=== PATIENT | male | born 1935 | race Caucasian/White ===

== ENCOUNTER 2017-02-16 20:47 | Observation (INO) | payer OTHER, MEDICARE ==
--- NOTE | 2017-02-16 21:24 | PDOC ---
Attending Attestation - HPI HPI: 02/16/17 22:40 Patient is a 81 year old male with a significant past medical history of Early Parkinson's who presents to the ED with complaints of palpitations that began this morning. Patient reports playing tennis this morning when he suddenly began to experience chest palpitations. He reports attempting to rest after initial onset in order to relieve palpitations, but ended up called EMS when they showed no signs of subsiding. As per EMS patient was in SVT while enroute to the ED. Patient currently has no complaints while in ED. Denies fever, chills. Denies nausea, vomiting. Denies out of state travel. Denies any other symptoms. Allergies: Penicillin, Sulfa Social history: No smoking. No alcohol. No illicit drugs. Surgical history: None FamHx - Father of [place]. PMD: None <Alexis Rose - Last Filed: 02/16/17 22:39> - Resident Resident Name: Jose Beachica - ED Attending Attestation I have performed the following: I have examined & evaluated the patient, The case was reviewed & discussed with the resident, I agree w/resident's findings & plan, Exceptions are as noted - Physicial Exam PE: 02/16/17 23:50 *Physical Exam General Appearance: Yes: Appropriately Dressed. No: Apparent Distress, Intoxicated HEENT: positive: EOMI, SUMEET, Normal ENT Inspection, Normal Voice, TMs Normal, Pharynx Normal. negative: Pale Conjunctivae, Photophobia, Scleral Icterus (R), Scleral Icterus (L) Neck: positive: Trachea midline, Normal Thyroid, Supple. negative: Tender, Rigid, Carotid bruit, Stridor, Lymphadenopathy (R), Lymphadenopathy (L), Thyromegaly Respiratory/Chest: positive: Lungs Clear, Normal Breath Sounds. negative: Chest Tender, Respiratory Distress, Accessory Muscle Use, Labored Respiration, RES, Crackles, Rales, Rhonchi, Stridor, Wheezing, Dullness Cardiovascular: positive: Regular Rhythm, Regular Rate, S1, S2. negative: Edema , JVD, Murmur, Bradycardia, Tachycardia Vascular Pulses: Dorsalis-Pedis (R): 2+, Doralis-Pedis (L): 2+ Gastrointestinal/Abdominal: positive: Normal Bowel Sounds, Flat, Soft. negative : Tender, Organomegaly, Pulsatile Mass, Increased Bowel Sounds, Decreased BS, Distended, Guarding, Rebound, Hernia, Hepatomegaly, Spleenomegaly Lymphatic: negative: Adenopathy, Tenderness Musculoskeletal: positive: Normal Inspection. negative: CVA Tenderness, Decreased Range of Motion Extremity: positive: Normal Capillary Refill, Normal Inspection, Normal Range of Motion, Pelvis Stable. negative: Tender, Pedal Edema, Swelling, Erythema Integumentary: positive: Normal Color, Dry, Warm. 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 negative: EOM Palsy, Facial Droop, Sensory Deficit - Medical Decision Making 02/16/17 23:50 Pt admitted to Tele Obs. <Corbin Hamilton - Last Filed: 02/16/17 23:51>
--- NOTE | 2017-02-16 21:27 | PDOC ---
History of Present Illness - General Chief Complaint: Irregular Heart Beat Stated Complaint: DIFFICULTY BREATHING Time Seen by Provider: 02/16/17 21:11 History Source: Patient - History of Present Illness Initial Comments: 02/16/17 21:22 Patient is a 81 y.o. male with a PMH of early Parkinson's Disease who presents to the ED tonight after palpitation while playing tennis. Patient states he attempted to rest however when the palpitations didn't resolve he called EMS. Patient denies any previous similar episodes and denies any chest pain/ shortness of breath on exertion @ baseline. Family history significant for paternal from [place]. Patient performed Valsava en route to the hospital and SVT resolved. Allergy: penicillins, sulfa Surgical: Rotator Cuff repair, ventral hernia repair, spinal stenosis repair Social: denies nicotine, 2-3 ounces of alcohol weekly, denies recreational drugs PMD: Past History - Past Medical History Allergies/Adverse Reactions: Allergies Allergy/AdvReac Type Severity Reaction Status Date / Time Penicillins Allergy Verified 02/16/17 21:05 Sulfa (Sulfonamide Allergy Verified 02/16/17 21:05 Antibiotics) Home Medications: Ambulatory Orders Aspirin [ASA -] 81 mg PO DAILY 02/16/17 Atorvastatin Ca [Lipitor] 20 mg NR HS 02/16/17 Carbidopa/Levodopa *Cr* 25/100 [Sinemet *Cr* 25/100 -] 1 tab PO QID 02/16/17 Escitalopram Oxalate [Lexapro -] 20 mg PO DAILY 02/16/17 Pyridoxine HCl [Vitamin B-6] 25 mg PO DAILY 02/16/17 - Suicide/Smoking/Psychosocial Hx Smoking History: Never smoked Have you smoked in the past 12 months: No Information on smoking cessation initiated: No Hx Alcohol Use: No Drug/Substance Use Hx: No Review of Systems - Review of Systems Constitutional: No: Chills, Fever Respiratory: No: Cough Cardiac (ROS): No: Chest Pain, Palpitations All Other Systems: Reviewed and Negative *Physical Exam - Vital Signs Last Vital Signs Temp Pulse Resp BP Pulse Ox 98.9 F 70 20 128/90 96 02/16/17 21:01 02/16/17 21:01 02/16/17 21:01 02/16/17 21:01 02/16/17 21:01 - Physical Exam General Appearance: Yes: Nourished, Appropriately Dressed Neck: positive: Trachea midline, Supple Respiratory/Chest: positive: Lungs Clear Cardiovascular: positive: S1, S2. 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 male who presents with resolved SVT s/p Valsalva. EKG shows SR, HR 68, with no deviations, prolonged LA interval, no ST segment elevations/depressions --> 1st degree AV block. Troponin (-) x1. CBC, CMP show no concerning abnormalities. Patient to be admitted to telemetry for further cardiac evaluation. *DC/Admit/Observation/Transfer Diagnosis at time of Disposition: Supraventricular tachycardia - Discharge Dispostion Condition at time of disposition: Good Admit: Yes - Referrals - Patient Instructions - Post Discharge Activity
[2017-02-16 22:19] LABS: BASO % 0.7 % (0-2.0); EOS % 4.2 % (0-4.5); HEMATOCRIT 39.3 % (35.4-49); HEMOGLOBIN 13.3 GM/dL (11.7-16.9); LYMPH % 23.5 % (8-40); MCH 31.2 pg (25.7-33.7); MCHC 33.9 g/dl (32.0-35.9); MEAN CELL VOLUME 92.1 fl (80-96); MEAN PLT VOLUME 9.1 fl (7.5-11.1); MONO % 8.9 % (3.8-10.2); NEUT % 62.7 % (42.8-82.8); PLATELET COUNT 194 K/MM3 (134-434); RBC 4.27 M/mm3 (4.00-5.60); RDW 13.6 % (11.9-15.9); WHITE BLOOD COUNT 6.6 K/mm3 (4.0-10.0)
[2017-02-16 22:45] LABS: ALBUMIN 3.6 g/dl (3.4-5.0); ANION GAP 5 (8-16); BLOOD UREA NITROGEN 21 mg/dL (7-18); CALCIUM 8.5 mg/dL (8.5-10.1); CHLORIDE 109 mmol/L (98-107); CO2 28 mmol/L (21-32); CREATININE 1.1 mg/dL (0.7-1.3); GLUCOSE,RANDOM 80 mg/dL (74-106); MAGNESIUM 2.4 mg/dL (1.8-2.4); POTASSIUM 4.1 mmol/L (3.5-5.1); SGOT/AST 22 U/L (15-37); SGPT/ALT 11 U/L (12-78); SODIUM 142 mmol/L (136-145)
[2017-02-16 22:49] LABS: ALK PHOS 88 U/L (45-117); BILIRUBIN,TOTAL 0.4 mg/dL (0.2-1.0); N-TERMINAL BNP 237.32 pg/ml (5-450); TOT PROT 6.9 g/dl (6.4-8.2)
--- NOTE | 2017-02-16 23:47 | HP ---
<Huber Paul - Last Filed: 02/17/17 00:34> CHIEF COMPLAINT: palpitations with registered SVT by EMS HISTORY OF PRESENT ILLNESS: 81 year old male with episode of SVT while playing tennis , resolved after valsalva performed by EMS PAST MEDICAL HISTORY: Diya Social History: Smoking: Alcohol: Drugs: Family History: Allergies Penicillins Allergy (Verified 02/16/17 21:05) Sulfa (Sulfonamide Antibiotics) Allergy (Verified 02/16/17 21:05) HOME MEDICATIONS: Home Medications Medication Instructions Recorded Aspirin [ASA -] 81 mg PO DAILY 02/16/17 Atorvastatin Ca [Lipitor] 20 mg NR HS 02/16/17 Carbidopa/Levodopa *Cr* 25/100 1 tab PO QID 02/16/17 [Sinemet *Cr* 25/100 -] Escitalopram Oxalate [Lexapro -] 20 mg PO DAILY 02/16/17 Pyridoxine HCl [Vitamin B-6] 25 mg PO DAILY 02/16/17 PHYSICAL EXAMINATION Vital Signs - 24 hr 02/16/17 02/16/17 21:01 23:47 Temperature 98.9 F Pulse Rate 70 Pulse Rate [ 61 Apical] Respiratory 20 17 Rate Blood Pressure 128/90 Blood Pressure 151/88 [Left Arm] O2 Sat by Pulse 96 98 Oximetry (%) LUNGS: CTA bilaterally. No wheezes, rhonchi, rales. No accessory muscle use. HEART: RRR, normal S1 and S2 without murmur. ABDOMEN: Soft, nontender, nondistended, normoactive bowel sounds, no guarding, no rebound, no masses. No hepatomegaly. MUSCULOSKELETAL: Normal range of motion at all joints. No bony deformities or tenderness. No CVA tenderness. EXTREMITIES: 2+ DP pulses, no edema Laboratory Results - last 24 hr 02/16/17 02/16/17 02/16/17 22:10 22:10 22:10 WBC 6.6 RBC 4.27 Hgb 13.3 Hct 39.3 MCV 92.1 MCH 31.2 MCHC 33.9 RDW 13.6 Plt Count 194 MPV 9.1 Neutrophils % 62.7 Lymphocytes % 23.5 Monocytes % 8.9 Eosinophils % 4.2 Basophils % 0.7 Sodium 142 Potassium 4.1 Chloride 109 H Carbon Dioxide 28 Anion Gap 5 L BUN 21 H Creatinine 1.1 Creat Clearance w eGFR > 60 Random Glucose 80 Calcium 8.5 Magnesium 2.4 Total Bilirubin 0.4 AST 22 ALT 11 L Alkaline Phosphatase 88 Creatine Kinase 83 Troponin I < 0.02 B-Natriuretic Peptide 237.32 Total Protein 6.9 Albumin 3.6 ASSESSMENT/PLAN: SVT likely triggered by vasovagal episode/ hypotension after physical activity monitor overnight on telemetry IVF ECHO if no acute events on telemetry may d/c in am to follow with pcp/ cardiology <Dickson Thornton - Last Filed: 02/17/17 00:56> CHIEF COMPLAINT: Palpitations PCP: None HISTORY OF PRESENT ILLNESS: 81yo M with only history of early Parkinson's and HLD who presents to the ED for palpitations after his tennis game today. Pt states he developed this episode of palpitations about 10 minutes after his tennis match, however it did not go away for another 30 minutes. Pt states he called the ambulance because he was concerned and he was instructed to perform a Valsalva maneuver which terminated the palpitations. Pt states he had palpitations once before over 10 years ago, however it lasted for about 2 minutes and terminated by itself. Pt states he is a coffee drinker, however had his usual 1-2 cups today. Pt also states he drinks alcohol (about 2-3 ounces /wk), however his last drink was Monday. Pt denied any lightheadedness, dizziness, SOB, CP/ discomfort, dysphagia, difficulty swallowing, fever/chills, abdominal pain, decreased exercise tolerance, diarrhea/constipation, and unusual weight fluctuations. ER course was notable for: (1) EKG - NSR @68bpm with 1st degree AV block; no ST abnormalities noted. ( Unknown to pt if he's had the 1st degree AV block or not) Recent Travel: Denies PAST MEDICAL HISTORY: HLD Parkinson's on Sinemet PAST SURGICAL HISTORY: Ventral hernia repair Rotator cuff repair Spinal stenosis decompression Social History: Smoking: Denies Alcohol: 2-3 ounces /wk Drugs: None Caffeine: 1-2 cups per day Family History: Mother - Pt "thinks she had" hyperthyroidism Father - at 39yo due to [place] Allergies Penicillins Allergy (Verified 02/16/17 21:05) Sulfa (Sulfonamide Antibiotics) Allergy (Verified 02/16/17 21:05) HOME MEDICATIONS: Home Medications Medication Instructions Recorded Aspirin [ASA -] 81 mg PO DAILY 02/16/17 Atorvastatin Ca [Lipitor] 20 mg NR HS 02/16/17 Carbidopa/Levodopa *Cr* 1 tab PO QID 02/16/17 [Sinemet *Cr* -] Escitalopram Oxalate [Lexapro -] 20 mg PO DAILY 02/16/17 Pyridoxine HCl [Vitamin B-6] 25 mg PO DAILY 02/16/17 REVIEW OF SYSTEMS CONSTITUTIONAL: Absent: fever, chills, diaphoresis, generalized weakness, malaise, loss of appetite, weight change HEENT: Absent: rhinorrhea, nasal congestion, throat pain, throat swelling, difficulty swallowing, mouth swelling, ear pain, eye pain, visual changes CARDIOVASCULAR: Present: Palpitations Absent: chest pain, syncope, lightheadedness, peripheral edema RESPIRATORY: Absent: cough, shortness of breath, dyspnea with exertion, orthopnea, wheezing, stridor, hemoptysis GASTROINTESTINAL: Absent: abdominal pain, abdominal distension, nausea, vomiting, diarrhea, constipation, melena, hematochezia GENITOURINARY: Absent: dysuria, frequency, urgency, hesitancy, hematuria, flank pain, genital pain MUSCULOSKELETAL: Absent: myalgia, arthralgia, joint swelling, back pain, neck pain SKIN: Absent: rash, itching, pallor HEMATOLOGIC/IMMUNOLOGIC: Absent: easy bleeding, easy bruising, lymphadenopathy, frequent infections ENDOCRINE: Absent: unexplained weight gain, unexplained weight loss, heat intolerance, cold intolerance NEUROLOGIC: Absent: headache, focal weakness or paresthesias, dizziness, unsteady gait, seizure, mental status changes, bladder or bowel incontinence PSYCHIATRIC: Absent: anxiety, depression, suicidal or homicidal ideation, hallucinations. PHYSICAL EXAMINATION Vital Signs - 24 hr 02/16/17 21:01 Temperature 98.9 F Pulse Rate 70 Respiratory 20 Rate Blood Pressure 128/90 O2 Sat by Pulse 96 Oximetry (%) GENERAL: NAD, laying comfortably in bed, awake, alert HEENT: No JVD, no thyromegaly appreciated, no nodules appreciated with swallowing, no lymphadenopathy, EOMI, SAVANAH, moist mucosa with normal structures LUNGS: CTA bilaterally. No wheezes, rhonchi, rales. No accessory muscle use. HEART: RRR, normal S1 and S2 without murmur. ABDOMEN: Soft, nontender, nondistended, normoactive bowel sounds, no guarding, no rebound, no masses. No hepatomegaly. MUSCULOSKELETAL: Normal range of motion at all joints. No bony deformities or tenderness. No CVA tenderness. EXTREMITIES: 2+ DP pulses, no edema NEUROLOGICAL: Cranial nerves II-XII intact. Normal speech. Nonfocal exam. Gait not observed PSYCHIATRIC: Cooperative. Good eye contact. Appropriate mood and affect. SKIN: Warm, no rashes or lesions noted, cap refill <2sec Laboratory Results - last 24 hr 02/16/17 02/16/17 02/16/17 22:10 22:10 22:10 WBC 6.6 RBC 4.27 Hgb 13.3 Hct 39.3 MCV 92.1 MCH 31.2 MCHC 33.9 RDW 13.6 Plt Count 194 MPV 9.1 Neutrophils % 62.7 Lymphocytes % 23.5 Monocytes % 8.9 Eosinophils % 4.2 Basophils % 0.7 Sodium 142 Potassium 4.1 Chloride 109 H Carbon Dioxide 28 Anion Gap 5 L BUN 21 H Creatinine 1.1 Creat Clearance w eGFR > 60 Random Glucose 80 Calcium 8.5 Magnesium 2.4 Total Bilirubin 0.4 AST 22 ALT 11 L Alkaline Phosphatase 88 Creatine Kinase 83 Troponin I < 0.02 B-Natriuretic Peptide 237.32 Total Protein 6.9 Albumin 3.6 ASSESSMENT/PLAN: 81yo M with HLD and early Parkinson's who presents with palpitations for 30 minutes after his tennis game without any associated symptoms. Pt had palpitations terminated with Valsva en route to hospital. 1) SVT --Unknown etiology; ? suspected PAF --Hemodynamically stable --EKG in ER shows 1st degree AV block and NSR (unknown if old 1st degree AV block) --Echo ordered in morning --TSH to be drawn with AM labs 2) Parkinson's --Continue Sinemet QID 3) HLD --Continue Lipitor 20mg HS PO FEN: Fluids: Not indicated currently Electrolyte abnormalities: None currently Nutrition: Cholesterol controlled diet PPX: DVT - SCDs and early ambulation Dispo: Tele obs Case discussed with Dr. Humberto Thornton, DO - Internal Medicine PGY-1 Visit type - Emergency Visit Emergency Visit: Yes ED Registration Date: 02/16/17 Care time: The patient presented to the Emergency Department on the above date and was hospitalized for further evaluation of their emergent condition. - New Patient This patient is new to me today: Yes Date on this admission: 02/17/17 - Critical Care Critical Care patient: No
[2017-02-17 01:23] VITALS: BMI 23.1
[2017-02-17 07:32] LABS: ANION GAP 6 (8-16); BLOOD UREA NITROGEN 18 mg/dL (7-18); CALCIUM 8.3 mg/dL (8.5-10.1); CHLORIDE 109 mmol/L (98-107); CO2 28 mmol/L (21-32); GLUCOSE,RANDOM 77 mg/dL (74-106); SODIUM 143 mmol/L (136-145)
[2017-02-17] MEDS ORDERED: FLU VACCINE QUAD 60 MCG/0.5 ML (MDV 17-18) IM ONE (09:00)
[2017-02-17] MEDS ORDERED: ESCITALOPRAM OXALATE 20 MG TABLET (FP) PO SCH (10:00)
[2017-02-17] MEDS ORDERED: ASPIRIN 81 MG CHEWABLE TABLETS PO SCH (10:00)
--- NOTE | 2017-02-17 10:23 | EKG ---
Test Reason : Blood Pressure : / mmHG Vent. Rate : 068 BPM Atrial Rate : 068 BPM P-R Int : 214 ms QRS Dur : 090 ms QT Int : 418 ms P-R-T Axes : 022 -44 053 degrees QTc Int : 444 ms POOR DATA QUALITY, INTERPRETATION MAY BE ADVERSELY AFFECTED SINUS RHYTHM WITH 1ST DEGREE A-V BLOCK LEFT AXIS DEVIATION VOLTAGE CRITERIA FOR LEFT VENTRICULAR HYPERTROPHY ABNORMAL ECG NO PREVIOUS ECGS AVAILABLE Confirmed by MD AALIYAH, MARLON ([id number]) on 02/17/2017 10:22:44 AM Referred By: Confirmed By:MARLON FISCHER MD
--- NOTE | 2017-02-17 13:02 | PN ---
Physical Exam: SUBJECTIVE: Patient seen and examined sitting on edge of bed eating lunch quite comfortably. present. Denies any symptoms at this time, feels well. PCP: Dr. Matos @ [facility] on [address] Welfare Supervisor: Dr. Mccormick, [facility] - last seen >10 years ago OBJECTIVE: Vital Signs Period Temp Pulse Resp BP Sys/Ballard Pulse Ox Last 24 Hr 97.9 F-98.9 F 56-70 17-20 128-158/66-90 96-98 GENERAL: The patient is awake, alert, and fully oriented, in no acute distress. LUNGS: Breath CTA HEART: RRR, S1, S2 ABDOMEN: Soft, nontender, nondistended, normoactive bowel sounds EXTREMITIES: 2+ pulses, warm, well-perfused, no edema. NEUROLOGICAL: Cranial nerves II through XII grossly intact. Normal speech Laboratory Results - last 24 hr 02/16/17 02/16/17 02/16/17 22:10 22:10 22:10 WBC 6.6 RBC 4.27 Hgb 13.3 Hct 39.3 MCV 92.1 MCH 31.2 MCHC 33.9 RDW 13.6 Plt Count 194 MPV 9.1 Neutrophils % 62.7 Lymphocytes % 23.5 Monocytes % 8.9 Eosinophils % 4.2 Basophils % 0.7 Sodium 142 Potassium 4.1 Chloride 109 H Carbon Dioxide 28 Anion Gap 5 L BUN 21 H Creatinine 1.1 Creat Clearance w eGFR > 60 Random Glucose 80 Calcium 8.5 Magnesium 2.4 Total Bilirubin 0.4 AST 22 ALT 11 L Alkaline Phosphatase 88 Creatine Kinase 83 Troponin I < 0.02 B-Natriuretic Peptide 237.32 Total Protein 6.9 Albumin 3.6 TSH 02/17/17 02/17/17 05:05 06:00 WBC RBC Hgb Hct MCV MCH MCHC RDW Plt Count MPV Neutrophils % Lymphocytes % Monocytes % Eosinophils % Basophils % Sodium 143 Potassium 4.0 Chloride 109 H Carbon Dioxide 28 Anion Gap 6 L BUN 18 Creatinine 1.0 Creat Clearance w eGFR Random Glucose 77 Calcium 8.3 L Magnesium Total Bilirubin AST ALT Alkaline Phosphatase Creatine Kinase Troponin I 0.04 D Cancelled B-Natriuretic Peptide Total Protein Albumin TSH 5.82 H Active Medications Generic Name Dose Route Start Last Admin Trade Name Freq PRN Reason Stop Dose Admin Aspirin 81 mg 02/17/17 10:00 02/17/17 09:48 Asa - PO 81 mg DAILY OSBALDO Administration Atorvastatin Calcium 20 mg 02/17/17 22:00 Lipitor - PO HS OSBALDO Carbidopa/Levodopa 1.5 combo 02/17/17 14:00 Sinemet *Cr* 25/100 - PO TID OSBALDO Escitalopram Oxalate 20 mg 02/17/17 10:00 02/17/17 09:48 Lexapro - PO 20 mg DAILY OSBALDO Administration ASSESSMENT/PLAN 81 year-old male with a PMH of HLD and Parkinson's disease. Chest pain --following 40 minutes of tennis, experienced dizziness, SOB, palpitations and mid-sternal chest tightness; according to ambulance report (in paper chart) initial 12-lead showed SVT at 156 bpm; patient instructed on vagal maneuver which successfully dropped HR to 60's; serial BP readings 130/60, 152/90/ 146/ 93 --serial ECGs without evidence of acute ischemic event; sinus colin @ 58, first degree heart block --telemetry: no arrhythmias, colin 50s --last cardiac workup >10 years ago --troponins neg x 2, third pending --echo pending --EST pending (patient avid athlete: tennis, spin classes, boxing, yoga, walking) --cardiology consult pending Parkinson's disease --diagnosed 2 years ago --on carbidopa/levodopa; side effect profile includes cardiac arrhythmias, chest pain, palpitations, and [place] (undefined frequency). --will appreciate cardiology input Elevated TSH --TSH 5.82 --no h/o of thyroid disorder --free T3, free T4 added on the am labs --will need outpatient followup FEN Fluids: PO intake adequate Electrolytes: replete as indicated, keep K>4, Mg >2 Nutrition: low sodium DVT prophylaxis: start lovenox in am if still here. Full code. Visit type - Emergency Visit Emergency Visit: Yes ED Registration Date: 02/16/17 Care time: The patient presented to the Emergency Department on the above date and was hospitalized for further evaluation of their emergent condition. - New Patient This patient is new to me today: Yes Date on this admission: 02/17/17 - Critical Care Critical Care patient: No
--- NOTE | 2017-02-17 14:41 | CON.CARD ---
Cardiology Consult (text) - Consultation Consultation Note: 81 y.o. male with a PMH of HL, depression, early Parkinson's Disease p/w palps. Occurred while playing tennis. Did not resolve with rest + assoc, lightheadedness, sob, cp Per ambulance record. Patient noted to have HR of 156. EKG c/w svt per report. patient performed vagal maneuvers with resolution of arrhythmia. Subsequent HR 60's --> sx's resolved. No recurrence since then. Patient denies any previous similar episodes or prior hx of palps, dizziness. No recent change in clinical status or decrease in exercise capacity. Patient plays tennis regularly without limitation. no orthopnea, pnd, le edema, bleeding, transient neurologic symptoms. pmhx/pshx: per hpi, Rotator Cuff repair, ventral hernia repair, spinal stenosis repair Social: Never smoked, 2-3 ounces of alcohol weekly, denies recreational drugs fam hx: paternal from [place]. ros: per hpi, no f/c/s, n/v/d, h/a, cough, congestion, rashes, visual disturbances. Ambulatory Orders Aspirin [ASA -] 81 mg PO DAILY 02/16/17 Atorvastatin Ca [Lipitor] 20 mg NR HS 02/16/17 Carbidopa/Levodopa *Cr* 25/100 [Sinemet *Cr* 25/100 -] 1 tab PO QID 02/16/17 Escitalopram Oxalate [Lexapro -] 20 mg PO DAILY 02/16/17 Pyridoxine HCl [Vitamin B-6] 25 mg PO DAILY 02/16/17 Current Medications Aspirin (Asa -) 81 mg PO DAILY [facility] Last Admin: 02/17/17 09:48 Dose: 81 mg Atorvastatin Calcium (Lipitor -) 20 mg PO HS [facility] Carbidopa/Levodopa (Sinemet *Cr* 25/100 -) 1.5 combo PO TID [facility] Last Admin: 02/17/17 14:31 Dose: 1.5 combo Enoxaparin Sodium (Lovenox -) 40 mg SQ DAILY [facility] Escitalopram Oxalate (Lexapro -) 20 mg PO DAILY [facility] Last Admin: 02/17/17 09:48 Dose: 20 mg Vital Signs - 24 hr 02/16/17 02/16/17 02/16/17 21:01 23:47 23:50 Temperature 98.9 F 97.9 F Pulse Rate 70 61 Pulse Rate [ 61 Apical] Respiratory 20 17 20 Rate Blood Pressure 128/90 158/78 Blood Pressure 151/88 [Left Arm] O2 Sat by Pulse 96 98 96 Oximetry (%) 02/17/17 02/17/17 03:48 09:00 Temperature 98 F Pulse Rate 56 L 54 L Pulse Rate [ Apical] Respiratory 20 18 Rate Blood Pressure 149/66 132/72 Blood Pressure [Left Arm] O2 Sat by Pulse Oximetry (%) Intake & Output 02/15/17 02/16/17 02/17/17 02/18/17 07:59 07:59 07:59 07:59 Weight 170 lb 3.2 oz nad, calm jvd flat, neck supple ctab, nl effort RRR nl s1, s2 no mrg + bs soft nt nd ext without e/c/c + dp/pt no carotid bruits no jaundice, diaphoresis. aaox3 CBC, BMP 02/16/17 22:10 02/17/17 05:05 Laboratory Tests 02/16/17 02/16/17 02/17/17 22:10 22:10 05:05 Magnesium 2.4 Total Bilirubin 0.4 AST 22 ALT 11 L Alkaline Phosphatase 88 Creatine Kinase 83 Troponin I < 0.02 0.04 D B-Natriuretic Peptide 237.32 Albumin 3.6 TSH 5.82 H 02/17/17 14:20 Magnesium Total Bilirubin AST ALT Alkaline Phosphatase Creatine Kinase Troponin I < 0.02 D B-Natriuretic Peptide Albumin TSH EKG 02/16: sr 68 bpm with av delay. lad. lvh. no acute ischemic changes EKG 02/17: sb 58 bpm with av delay. otherwise unchanged tele: sr/sb, trevor in the high 40's. 2 episodes of 4 beat and 8 beat atrial run. echo nl lv/rv. 1+ mr/tr. nl rvsp. 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
--- NOTE | 2017-02-17 16:27 | TRE ---
Protocol Name : SERGE Max Work Load (METS*10) : 70 Time In Exercise Phase : 00:05:22 Max. Systolic BP : 183 mmHg Max Diastolic BP : 100 mmHg Max Heart Rate : 139 BPM Max Predicted Heart Rate : 141 BPM Attending Physician : JUJU FISCHER Reason For Termination : Target Heart Rate Achieved Reason for Test : CHEST PAIN Stress Protocol : SERGE Rest HR : 76 BPM PeakEx METs : 7.0 METS Recovery ECG Response (OLD) : Diagnosis : Exercise treadmil stress test The patient performed 5:22min of standard serge protocol. Target heart rate was achieved. Test was terminated due to fatigue. No chest pain or shortness of breath throughout the exam. Rest ECG showed NSR 60bpm with no significant ST abnormalities. Stress ECG showed no significant ST changes from baseline. There were occasional PVCs but no significant arrythmias throughout the exam. Impression: Normal Exercise treadmill stress test. No evidence of stress induced ischemia. Confirmed by MD FISCHER GREGORY ([id number]) on 02/17/2017 4:26:48 PM
--- NOTE | 2017-02-17 16:32 | EKG ---
Test Reason : Blood Pressure : / mmHG Vent. Rate : 058 BPM Atrial Rate : 058 BPM P-R Int : 216 ms QRS Dur : 096 ms QT Int : 438 ms P-R-T Axes : 020 -41 070 degrees QTc Int : 429 ms SINUS BRADYCARDIA WITH 1ST DEGREE A-V BLOCK LEFT AXIS DEVIATION VOLTAGE CRITERIA FOR LEFT VENTRICULAR HYPERTROPHY ABNORMAL ECG WHEN COMPARED WITH ECG OF 16-FEB-2017 21:05, NO SIGNIFICANT CHANGE WAS FOUND Confirmed by MD AALIYAH, MARLON ([id number]) on 02/17/2017 4:32:16 PM Referred By: Confirmed By:MARLON FISCHER MD
--- NOTE | 2017-02-17 17:24 | DS ---
Physical Exam: SUBJECTIVE: Patient seen and examined OBJECTIVE: Vital Signs Period Temp Pulse Resp BP Sys/Ballard Pulse Ox Last 24 Hr 97.9 F-98.9 F 54-74 17-20 123-158/66-90 96-100 PHYSICAL EXAM GENERAL: The patient is awake, alert, and fully oriented, in no acute distress. HEAD: Normal with no signs of trauma. EYES: PERRL, extraocular movements intact, sclera anicteric, conjunctiva clear. ENT: Ears normal, nares patent, oropharynx clear without exudates, moist mucous membranes. NECK: Trachea midline, full range of motion, supple. LUNGS: Breath sounds equal, clear to auscultation bilaterally, no wheezes, no crackles, no accessory muscle use. HEART: Regular rate and rhythm, S1, S2 without murmur, rub or gallop. ABDOMEN: Soft, nontender, nondistended, normoactive bowel sounds, no guarding, no rebound, no hepatosplenomegaly, no masses. EXTREMITIES: 2+ pulses, warm, well-perfused, no edema. NEUROLOGICAL: Cranial nerves II through XII grossly intact. Normal speech, gait not observed. PSYCH: Normal mood, normal affect. SKIN: Warm, dry, normal turgor, no rashes or lesions noted. LABS Laboratory Results - last 24 hr 02/16/17 02/16/17 02/16/17 22:10 22:10 22:10 WBC 6.6 RBC 4.27 Hgb 13.3 Hct 39.3 MCV 92.1 MCH 31.2 MCHC 33.9 RDW 13.6 Plt Count 194 MPV 9.1 Neutrophils % 62.7 Lymphocytes % 23.5 Monocytes % 8.9 Eosinophils % 4.2 Basophils % 0.7 Sodium 142 Potassium 4.1 Chloride 109 H Carbon Dioxide 28 Anion Gap 5 L BUN 21 H Creatinine 1.1 Creat Clearance w eGFR > 60 Random Glucose 80 Calcium 8.5 Magnesium 2.4 Total Bilirubin 0.4 AST 22 ALT 11 L Alkaline Phosphatase 88 Creatine Kinase 83 Troponin I < 0.02 B-Natriuretic Peptide 237.32 Total Protein 6.9 Albumin 3.6 TSH 02/17/17 02/17/17 02/17/17 05:05 06:00 14:20 WBC RBC Hgb Hct MCV MCH MCHC RDW Plt Count MPV Neutrophils % Lymphocytes % Monocytes % Eosinophils % Basophils % Sodium 143 Potassium 4.0 Chloride 109 H Carbon Dioxide 28 Anion Gap 6 L BUN 18 Creatinine 1.0 Creat Clearance w eGFR Random Glucose 77 Calcium 8.3 L Magnesium Total Bilirubin AST ALT Alkaline Phosphatase Creatine Kinase Troponin I 0.04 D Cancelled < 0.02 D B-Natriuretic Peptide Total Protein Albumin TSH 5.82 H HOSPITAL COURSE: Date of Admission:02/16/17 Date of Discharge: 02/17/17 Discharge Summary Reason For Visit: SVT Current Active Problems Supraventricular tachycardia (Acute) Condition: Improved - Instructions Diet, Activity, Other Instructions: Please follow up with your primary care provider Dr. Matos within one week of your discharge. Return to the emergency department for any new or worsening symptoms. Referrals: Mukesh Matos Dr. [Other] - 1 Week Disposition: HOME - Home Medications Comprehensive Discharge Medication List: Ambulatory Orders Aspirin [ASA -] 81 mg PO DAILY 02/16/17 Atorvastatin Ca [Lipitor] 20 mg NR HS 02/16/17 Escitalopram Oxalate [Lexapro -] 20 mg PO DAILY 02/16/17 Pyridoxine HCl [Vitamin B-6] 25 mg PO DAILY 02/16/17 Carbidopa/Levodopa *Cr* 25/100 [Sinemet *Cr* 25/100 -] 1.5 combo PO TID tablet.er 02/17/17
[2017-02-17 18:11] VITALS: BP 144/86; PULSE 61; TEMP 97.7
[2017-02-17] MEDS ORDERED: ATORVASTATIN CA 20 MG TABLET (FP) PO SCH (22:00)
[2017-02-18] MEDS ORDERED: ENOXAPARIN NA (PORCINE) 40 MG/0.4 ML DISP.SYRIN SQ SCH (10:00)
== END 2017-02-17 19:01 | disposition home or self-care (01) ==
LOC: JER 20:47 → JERBED 23:29 → UNDOADMOB 23:50 → J4W 02-17 00:49 → JERBED 02-17 00:49
PROVIDERS: ADMIT Internal Medicine; ATTEND Nurse Practitioner Acute Care
PROC: 3E0234Z Introduction of Serum, Toxoid and Vaccine into Muscle, Percutaneous Approach (ICD-10-PCS; principal; 2017-02-16)
DX: I47.1 Supraventricular tachycardia (principal); E78.5 Hyperlipidemia, unspecified; F32.9 Major depressive disorder, single episode, unspecified; G20 Parkinson's disease; Z79.82 Long term (current) use of aspirin
CPT/HCPCS: 36415; 80048; 80053; 82550; 83735; 83880; 84443; 84484; 85025; 90688; 93005; 93010; 93017; 93018; 93306-TC; 99283-25; G0008; G0378